=== PATIENT | female | born 1950 | race Caucasian/White ===

== ENCOUNTER → 2019-04-30 06:59 | Outpatient (CLI) | payer OTHER | END | disposition home or self-care (01) | LOC: LAB 06:59 | DX: D12.7 Benign neoplasm of rectosigmoid junction (principal); R19.4 Change in bowel habit; R19.5 Other fecal abnormalities ==

== ENCOUNTER 2019-05-22 08:15 | Day surgery (SDC) | payer OTHER | END 2019-05-22 11:10 | disposition home or self-care (01) | LOC: AMB-ENDOS 08:15 | DX: D12.8 Benign neoplasm of rectum (principal); K57.30 Diverticulosis of large intestine without perforation or abscess without bleeding ==